=== PATIENT | female | born 1975 | race Caucasian/White ===

== ENCOUNTER 2020-03-15 07:51 | Inpatient (IN) | payer OTHER ==
[2020-03-09 15:24] VITALS: BMI 36.1
[2020-03-15] MEDS ORDERED: ROCURONIUM BROMIDE 50 MG/5 ML SYRINGE ONE ×2 (08:57→11:40)
[2020-03-15] MEDS ORDERED: PROPOFOL 20 ML ONE (08:57)
[2020-03-15] MEDS ORDERED: LIDOCAINE HCL/PF 2% SDV 5ML VIAL ONE (08:57)
[2020-03-15] MEDS ORDERED: ONDANSETRON 4 MG/2 ML VIAL IVPUSH PRN (09:35)
[2020-03-15] MEDS ORDERED: LACTATED RINGERS SOLUTION 1,000 ML IV SCH (09:45)
--- NOTE | 2020-03-15 09:54 | HP ---
Admitting History and Physical - Admission Chief Complaint: Morbid obesity History Source: Patient Limitations to Obtaining History: No Limitations - Past Medical History Pulmonary: Yes: Asthma ...LMP: 02/07/20 ...: No Endocrine: Yes: Hypothyroidism - Past Surgical History Past Surgical History: Yes: - Smoking History Smoking history: Never smoked Have you smoked in the past 12 months: No - Social History ADL: Independent Home Medications - Allergies Allergies/Adverse Reactions: Allergies Allergy/AdvReac Type Severity Reaction Status Date / Time No Known Allergies Allergy Verified 03/09/20 15:04 - Home Medications Home Medications: Ambulatory Orders RX: Levothyroxine Sodium [Levoxyl] 137 mcg PO DAILY 03/09/20 Family Medical History Family History: Unremarkable Review of Systems - Review of Systems Constitutional: denies: Chills, Fever HENT: reports: No Symptoms Neck: reports: No Symptoms Cardiovascular: reports: No Symptoms Respiratory: reports: No Symptoms Gastrointestinal: reports: No Symptoms Neurological: reports: No Symptoms Pain Intensity: 0 Physical Examination Vital Signs: Vital Signs Temperature 97.8 F 03/15/20 08:55 Pulse Rate 78 03/15/20 08:55 Respiratory Rate 18 03/15/20 08:55 Blood Pressure 126/89 03/15/20 08:55 O2 Sat by Pulse Oximetry (%) 98 03/15/20 08:55 Constitutional: Yes: Calm Cardiovascular: Yes: WNL Respiratory: Yes: WNL Gastrointestinal: Yes: Soft, Abdomen, Obese Neurological: Yes: Alert, Oriented Problem List - Problems (1) Morbid (severe) obesity due to excess calories Code(s): E66.01 - MORBID (SEVERE) OBESITY DUE TO EXCESS CALORIES Assessment/Plan Laparoscopic possible open vertical sleeve gastrectomy possible liver biopsy, upper endoscopy
[2020-03-15] MEDS ORDERED: BUPIVACAINE HCL/PF 0.25% (2.5MG/ML) 10 ML VIAL ONE (10:05)
[2020-03-15] MEDS ORDERED: MIDAZOLAM HCL 2 MG/2 ML SINGLE DOSE VIAL ONE (10:10)
[2020-03-15] MEDS ORDERED: BUPIVACAINE HCL/PF 0.5% (5 MG/ML) 30 ML VIAL IJ ONE (10:11)
[2020-03-15] MEDS ORDERED: BUPIVACAINE HCL/PF 0.25% (2.5MG/ML) 10 ML VIAL IJ ONE ×2 (11:10→12:05)
[2020-03-15] MEDS ORDERED: DESFLURANE GAS 240 ML BOTTLE IH ONE (11:12)
[2020-03-15] MEDS ORDERED: GLYCOPYRROLATE 0.2 MG/1 ML VIAL ONE (11:47)
[2020-03-15] MEDS ORDERED: NEOSTIGMINE METHYLSULFATE 0.5 MG/ML - 10 ML MDV ONE (11:47)
[2020-03-15] MEDS ORDERED: HYDROmorphone HCL CARPU-JECT 1 MG/1 ML DISP.SYRIN IVPB PRN (11:56)
--- NOTE | 2020-03-15 11:59 | OPR ---
Operative Note Operative Date: 03/15/20 Pre-Operative Diagnosis: Morbid obesity Operation: 1. Diagnostic laparoscopy. 2. Laparoscopic vertical sleeve gastrectomy. 3. Laparoscopic wedge liver biopsy. 4. Laparoscopic oversewing of gastric staple line 5. Laparoscopic peritoneal washings for ascites Post-Operative Diagnosis: Same as Pre-op (as well as hepatomegaly, oozing from gastric staple line, and ascites) Surgeon: Michael Larose Sifting Operator: Dyane Tam Anesthesia: General Specimens Removed: Greater curvature of stomach. Liver biopsy. Ascites fluid for cytology Estimated Blood Loss (mls): 30 Drains & Tubes with Location: 36 Fr Bougie Operative Report Dictated: Yes
[2020-03-15] MEDS ORDERED: SODIUM CHLORIDE 1,000 ML IV SCH (12:00)
[2020-03-15] MEDS ORDERED: ACETAMINOPHEN 1000 MG/100 ML VIAL (NON FORMULARY) IVPB SCH (12:00)
[2020-03-15] MEDS ORDERED: METOCLOPRAMIDE HCL INJECTION 10 MG/2 ML VIAL ONE (12:03)
[2020-03-15] MEDS ORDERED: ACETAMINOPHEN INJECTION 100 ML IVPB ONE (12:03)
[2020-03-15] MEDS ORDERED: FAMOTIDINE 20 MG/50 ML IVPB 20 MG/50 ML MG IVPB ONE (12:03)
[2020-03-15] MEDS: ACETAMINOPHEN 1000 MG/100 ML VIAL (NON FORMULARY) IVPB SCH ×3 (12:20→21:14)
[2020-03-15] MEDS: METOCLOPRAMIDE HCL INJECTION 10 MG/2 ML VIAL IVPUSH SCH ×3 (12:32→23:35)
[2020-03-15] MEDS ORDERED: FAMOTIDINE 20 MG PREMIXED IVPB IVPB ONE (12:35)
[2020-03-15 12:55] LABS: HEMATOCRIT 34.1 % (32.4-45.2); HEMOGLOBIN 10.9 GM/dl (10.7-15.3); MCH 24.4 pg (25.7-33.7); MCHC 32.1 g/dl (32.0-36.0); MEAN CELL VOLUME 76.1 fl (80-96); MEAN PLT VOLUME 9.6 fl (7.5-11.1); PLATELET COUNT 244 K/MM3 (134-434); RBC 4.48 M/mm3 (3.60-5.2); RDW 15.1 % (11.6-15.6); WHITE BLOOD COUNT 10.9 K/mm3 (4.0-10.8)
[2020-03-15 13:02] LABS: ALBUMIN 3.5 g/dl (3.4-5.0); CALCIUM 8.5 mg/dl (8.5-10); POTASSIUM 4.5 mmol/L (3.5-5.1); TOT PROT 6.6 g/dl (6.4-8.2)
[2020-03-15] MEDS: ONDANSETRON 4 MG/2 ML VIAL IVPUSH SCH ×2 (16:10→21:16)
[2020-03-15] MEDS: HYDROmorphone HCL CARPU-JECT 1 MG/1 ML DISP.SYRIN IVPB PRN (17:15)
[2020-03-15] MEDS: ENOXAPARIN NA (PORCINE) 40 MG/0.4 ML DISP.SYRIN SQ SCH (21:15)
[2020-03-15] MEDS: FAMOTIDINE 20 MG/50 ML IVPB 20 MG/50 ML MG IVPB SCH (21:15)
[2020-03-16] MEDS: HYDROmorphone HCL CARPU-JECT 1 MG/1 ML DISP.SYRIN IVPB PRN (00:22)
[2020-03-16] MEDS: ONDANSETRON 4 MG/2 ML VIAL IVPUSH SCH ×6 (02:30→21:55)
[2020-03-16] MEDS: ACETAMINOPHEN 1000 MG/100 ML VIAL (NON FORMULARY) IVPB SCH (03:10)
[2020-03-16] MEDS: METOCLOPRAMIDE HCL INJECTION 10 MG/2 ML VIAL IVPUSH SCH ×3 (06:03→17:37)
[2020-03-16 07:39] LABS: HEMOGLOBIN 10.9 GM/dl (10.7-15.3); MCH 24.1 pg (25.7-33.7); MCHC 32.1 g/dl (32.0-36.0); MEAN CELL VOLUME 75.3 fl (80-96); MEAN PLT VOLUME 9.7 fl (7.5-11.1); PLATELET COUNT 241 K/MM3 (134-434); RBC 4.53 M/mm3 (3.60-5.2); RDW 15.1 % (11.6-15.6); WHITE BLOOD COUNT 16.2 K/mm3 (4.0-10.8)
[2020-03-16 07:53] LABS: ALBUMIN 3.4 g/dl (3.4-5.0); BILIRUBIN,TOTAL 0.4 mg/dl (0.2-1); CALCIUM 8.3 mg/dl (8.5-10); CREATININE 0.8 mg/dl (0.55-1.3); POTASSIUM 4.2 mmol/L (3.5-5.1); TOT PROT 6.5 g/dl (6.4-8.2)
--- NOTE | 2020-03-16 08:02 | PN ---
Progress Note (short form) - Note Progress Note: 44F POD#1 for laparoscopic sleeve gastrectomy under GA. Pt. doing well this am. No anesthesia related complications.
[2020-03-16] MEDS ORDERED: HYDROmorphone HCL/PF 1 MG/ML VIAL IVPB PRN (08:59)
[2020-03-16] MEDS: ENOXAPARIN NA (PORCINE) 40 MG/0.4 ML DISP.SYRIN SQ SCH ×2 (09:50→21:55)
[2020-03-16] MEDS: FAMOTIDINE 20 MG/50 ML IVPB 20 MG/50 ML MG IVPB SCH ×2 (09:50→21:55)
--- NOTE | 2020-03-16 11:36 | PN ---
Progress Note (short form) - Note Progress Note: POD 1 No nausea/vomiting reported Vital Signs Period Temp Pulse Resp BP Sys/Hussein Pulse Ox Last 24 Hr 97.5 F-98.3 F 53-83 14-18 117-148/75-95 96-100 CBC,CMP WBC 16.2 K/mm3 (4.0-10.8) H 03/16/20 07:19 RBC 4.53 M/mm3 (3.60-5.2) 03/16/20 07:19 Hgb 10.9 GM/dl (10.7-15.3) 03/16/20 07:19 Hct 34.0 % (32.4-45.2) 03/16/20 07:19 MCV 75.3 fl (80-96) L 03/16/20 07:19 MCH 24.1 pg (25.7-33.7) L 03/16/20 07:19 MCHC 32.1 g/dl (32.0-36.0) 03/16/20 07:19 RDW 15.1 % (11.6-15.6) 03/16/20 07:19 Plt Count 241 K/MM3 (134-434) 03/16/20 07:19 MPV 9.7 fl (7.5-11.1) 03/16/20 07:19 Sodium 136 mmol/L (136-145) 03/16/20 07:19 Potassium 4.2 mmol/L (3.5-5.1) 03/16/20 07:19 Chloride 106 mmol/L (98-107) 03/16/20 07:19 Carbon Dioxide 23 mmol/L (21-32) 03/16/20 07:19 Anion Gap 7 MMOL/L (8-16) L 03/16/20 07:19 BUN 10.0 mg/dl (7-18) 03/16/20 07:19 Creatinine 0.8 mg/dl (0.55-1.3) 03/16/20 07:19 Est GFR (CKD-EPI)AfAm 103.92 03/16/20 07:19 Est GFR (CKD-EPI)NonAf 89.66 03/16/20 07:19 Random Glucose 111 mg/dl (74-106) H 03/16/20 07:19 Calcium 8.3 mg/dl (8.5-10) L 03/16/20 07:19 Total Bilirubin 0.4 mg/dl (0.2-1) 03/16/20 07:19 AST 42 U/L (15-37) H 03/16/20 07:19 ALT 40 U/L (13-61) 03/16/20 07:19 Alkaline Phosphatase 67 U/L (45-117) 03/16/20 07:19 Total Protein 6.5 g/dl (6.4-8.2) 03/16/20 07:19 Albumin 3.4 g/dl (3.4-5.0) 03/16/20 07:19 UGI: no leak/obstruction Clears Discharge home Problem List - Problems (1) Morbid (severe) obesity due to excess calories Code(s): E66.01 - MORBID (SEVERE) OBESITY DUE TO EXCESS CALORIES
[2020-03-16] MEDS ORDERED: SODIUM CHLORIDE 1,000 ML IV SCH (11:45)
[2020-03-16 11:59] LABS: BASO % 0.2 % (0-2.0); HEMATOCRIT 32.2 % (32.4-45.2); HEMOGLOBIN 10.3 GM/dl (10.7-15.3); LYMPH % 8.4 % (8-40); MCH 24.8 pg (25.7-33.7); MEAN CELL VOLUME 77.7 fl (80-96); MEAN PLT VOLUME 9.3 fl (7.5-11.1); MONO % 6.1 % (3.8-10.2); NEUT % 85.3 % (42.8-82.8); PLATELET COUNT 227 K/MM3 (134-434); RBC 4.14 M/mm3 (3.60-5.2); RDW 15.3 % (11.6-15.6)
[2020-03-16] MEDS: oxyCODONE HCL 5 MG TABLET PO PRN (15:54)
--- NOTE | 2020-03-16 18:31 | OP ---
DATE OF OPERATION: 03/15/2020 PLACE OF SURGERY: [facility], [address] [place] [address] SURGEON: Anthony Larose MD. SUPERVISOR FABRICATION: Dayne Tam MD. PREOPERATIVE DIAGNOSIS: Morbid obesity. POSTOPERATIVE DIAGNOSIS: 1. Morbid obesity. 2. Hepatomegaly. 3. Ascites. PROCEDURES: 1. Diagnostic laparoscopy. 2. Laparoscopic vertical sleeve gastrectomy. 3. Laparoscopic wedge liver biopsy. 4. Laparoscopic oversewing gastric staple line . 5. Laparoscopic peritoneal washings and suction of ascites fluid. SPECIMENS: 1. Greater curvature of the stomach. 2. Liver biopsy. 3. Ascites fluid for cytology. ESTIMATED BLOOD LOSS: 30 mL. DRAINS: None. ANESTHESIA: GET BOUGIE SIZE: 36-Portuguese. REASON FOR PROCEDURE: This is a 44-year-old female who presents for weight loss options. After describing different options, she decided to proceed with laparoscopic, possible open vertical sleeve gastrectomy, possible liver biopsy, upper endoscopy. RISKS AND BENEFITS: After describing the different options for weight loss management, the patient decided to proceed with a laparoscopic, possible open vertical sleeve gastrectomy. The patient was seen by the respective subspecialties and cleared for surgery. The risks and benefits of the procedure were explained. These included bleeding, infection, hernia, LA, DVT, PE, injury to surrounding structures including the liver, colon, bowel, spleen, esophagus, vessel injury, nerve injury, weight regain, gastric leak, staple line leak, sleeve leak, obstruction, vitamin deficiency, hair loss and as some of the possible complications. The patient understood and signed informed consent. DESCRIPTION OF PROCEDURE: The patient was placed supine on the operating room table. The patient underwent general endotracheal intubation. The arms were brought out at 90 degrees and secured. A footboard was placed and the legs were secured laterally with padding. The abdomen was prepped and draped in the usual sterile fashion. A timeout was performed. An incision was made in the left upper quadrant and a Veress needle inserted. Pneumoperitoneum was established. Subsequently, the Veress needle was removed and a 5-mm trocar was placed under direct visualization with the laparoscope. The laparoscopic camera was then inserted and inspection of the abdominal cavity was performed. An incision was then made in the supraumbilical area and a 15-mm trocar was placed under direct visualization. A 5-mm trocar was then placed in the right upper quadrant and a 5-mm trocar was placed below the left subcostal margin. A stab wound was made in the subxiphoid area and a Lashanda clamp inserted and removed to dilate the tract. A Coty liver retractor was inserted. The post was secured at the bedside by the nursing staff. The patient was placed in steep reverse Trendelenburg position and the Coty liver retractor was used to secure the liver towards the anterior abdominal wall. The pylorus was identified and 6 cm proximal to it, the lesser sac was entered using the LigaSure device. All lateral attachments to the greater curvature of the stomach, including the short gastric vessels, were ligated using the LigaSure device toward the gastrosplenic and gastrophrenic ligaments. Once this was done in its entirety, it was confirmed that all tubes within the nasal or oropharyngeal cavity, including a temperature probe were removed by Anesthesia. The bougie was then inserted by Anesthesia. Transection of the stomach was then begun staying adjacent to the bougie but away from the angularis. Transection of the stomach was performed near the portion of the stomach where the lesser sac was entered. Two laparoscopic Endo-LARISA black indu were used at this location. Laparoscopic Endo LARISA purple staple loads were then used for the remainder of the transection until the greater curvature of the stomach was fully transected. This was done staying close to the bougie. Care was taken to stay away from the angle of His cephalad. The staple line was then inspected. Hemostasis was identified. A leak test was then performed. It was clamped distally to the staple line. Irrigation solution was placed in the left upper quadrant and air was insufflated by Anesthesia into the sleeve. No leaks were identified. No obstruction was identified. This was done through the entirety of the staple line. The stomach was suctioned and the bougie removed fully intact under direct visualization. At this point, the irrigation solution was suctioned and again, hemostasis was noted. A wedge liver biopsy was then performed. The left lobe of the liver was identified. A portion of the edge of the left lobe of the liver was grasped. Using electrocautery, a wedge of the left liver was excised. The specimen was removed and sent off the field. Hemostasis of the wedge liver biopsy site was attained and noted using electrocautery. The 15-mm supraumbilical trocar was then removed and the greater curvature specimen removed from the site using a sponge stick castillo. A Yousuf-Juan Pablo device was then used to close the fascia with a 0 Vicryl suture at the site. Again, hemostasis was noted. The Coty liver retractor was then removed under direct visualization. Pneumoperitoneum was desufflated. Hemostasis was noted at all incision sites and Marcaine was injected at all incision sites. A 3-0 Vicryl suture was used to close the deep subcutaneous tissue at the 15-mm incision site. All incision sites were closed using 4-0 Biosyn. Sterile dressings were applied. The patient tolerated the procedure well and was transferred to the recovery room in stable condition. ADDENDUM: In addition, please note that because of oozing at the gastric staple line, oversewing was performed with an Endo Stitch device. This was done with using a Surgitek suture. The areas of the staple line that were oozing were controlled with the Endo Stitch device. Hemostasis was noted. In addition, at the end of the case, there was noted to be fluid that appeared to be ascites in the left upper quadrant. Fluid was suctioned, sent for cytology and pathology. The area was also washed and re-suctioned. ANTHONY LAROSE M.D. [id number]
[2020-03-17] MEDS: METOCLOPRAMIDE HCL INJECTION 10 MG/2 ML VIAL IVPUSH SCH ×2 (00:02→06:01)
[2020-03-17] MEDS: ONDANSETRON 4 MG/2 ML VIAL IVPUSH SCH ×3 (00:02→08:15)
[2020-03-17] MEDS: oxyCODONE HCL 5 MG TABLET PO PRN (06:06)
[2020-03-17 08:33] LABS: BASO % 0.4 % (0-2.0); EOS % 0.2 % (0-4.5); HEMATOCRIT 32.2 % (32.4-45.2); HEMOGLOBIN 10.6 GM/dl (10.7-15.3); LYMPH % 11.8 % (8-40); MCHC 32.9 g/dl (32.0-36.0); MEAN PLT VOLUME 10.2 fl (7.5-11.1); MONO % 7.3 % (3.8-10.2); NEUT % 80.3 % (42.8-82.8); PLATELET COUNT 221 K/MM3 (134-434); RBC 4.23 M/mm3 (3.60-5.2); RDW 14.9 % (11.6-15.6)
[2020-03-17] MEDS: ENOXAPARIN NA (PORCINE) 40 MG/0.4 ML DISP.SYRIN SQ SCH (10:01)
[2020-03-17] MEDS: FAMOTIDINE 20 MG/50 ML IVPB 20 MG/50 ML MG IVPB SCH (10:01)
[2020-03-17 10:19] VITALS: BP 126/79; PULSE 78; TEMP 98.6
--- NOTE | 2020-03-19 18:10 | PATH ---
Surgical Pathology Report Patient Name: MANUEL CARRILLO Med. Rec. #: [id number] /Age/Gender: 1975 (Age: 44) / F Account: [id number] Location: [facility] MED-SURG Taken: 03/15/2020 Received: 03/15/2020 Reported: 03/19/2020 Physicians: Michael Larose M.D. Specimen(s) Received A: GREATER CURVATURE OF STOMACH B: LIVER BIOPSY Clinical History Morbid obesity Final Diagnosis A. GREATER CURVATURE, STOMACH, LAPAROSCOPIC GASTRIC SLEEVE EXCISION: PORTION OF STOMACH SHOWING MILD CHRONIC MUCOSAL INFLAMMATION. IMMUNOSTAIN IS NEGATIVE FOR H. PYLORI ORGANISMS. B. LIVER, BIOPSY: LIVER SHOWING MINIMAL STEATOSIS (~1%). TRICHROME STAIN SHOWS NO SIGNIFICANT INCREASE IN FIBROSIS. IRON STAIN IS NEGATIVE FOR IRON DEPOSITS. Electronically Signed Neda Sosa M.D. Gross Description A. Received in formalin, labeled "greater curvature of stomach," is a 95 gram, 17.0 x 3.0 x 2.7 cm. portion of stomach with a stapled margin of resection. The serosa is pena-goodwin with minimal attached fat. The mucosa is pena-pink with normal folds. No mucosal masses are identified. Subeditor sections are submitted in one cassette. B. Received in formalin labeled "liver biopsy," is a 3.4 x 1.1 x 0.6 cm pena portion of soft tissue, consistent with a liver biopsy. Subeditor sections are submitted in one cassette. /03/17/2020 saudi03/17/2020
--- NOTE | 2020-03-22 15:15 | PATH ---
Cytology Non-Gynecological Report Patient Name: MANUEL CARRILLO Med. Rec. #: [id number] /Age/Gender: 1975 (Age: 44) / F Account: [id number] Location: [facility] MED-SURG Taken: 03/16/2020 Received: 03/16/2020 Reported: 03/22/2020 Physicians: Michale Larose M.D. Specimen(s) Received ABDOMINAL ASCITES FLUID Clinical History None given Final Diagnosis ABDOMINAL ASCITES FLUID, PARACENTESIS: SATISFACTORY FOR EVALUATION. BENIGN. PREDOMINANTLY BLOOD AND MESOTHELIAL CELLS. Electronically Signed Neda Sosa M.D. Gross Description Received fresh is approximately 0.5 cc of bloody fluid from which one cytoconcentrate slide and one cell block is prepared.
== END 2020-03-17 12:27 | disposition home or self-care (01) | DRG 620 ==
LOC: FM/S 07:51
PROVIDERS: ADMIT Surgery; ATTEND Surgery
PROC: 3E1M38Z Irrigation of Peritoneal Cavity using Irrigating Substance, Percutaneous Approach (ICD-10-PCS; 2020-03-15)
PROC: 0DB64Z3 Excision of Stomach, Percutaneous Endoscopic Approach, Vertical (ICD-10-PCS; principal; 2020-03-15 10:59)
PROC: 0FB24ZX Excision of Left Lobe Liver, Percutaneous Endoscopic Approach, Diagnostic (ICD-10-PCS; 2020-03-15 10:59)
DX: E66.01 Morbid (severe) obesity due to excess calories (principal); R18.8 Other ascites; J45.909 Unspecified asthma, uncomplicated; Z68.36 Body mass index [BMI] 36.0-36.9, adult; R16.0 Hepatomegaly, not elsewhere classified
CPT/HCPCS: 36415; 74240-TC-FY; 80053; 84703; 85025; 85027; 88108; 88305-TC; 94760; J0131